=== PATIENT | female | born 1970 | race Caucasian/White ===

== ENCOUNTER 2020-04-07 15:54 | Outpatient (REF) | payer OTHER, SELFPAY ==
--- NOTE | 2020-04-07 15:58 | MM_ITS ---
EXAMINATION: MM SCREENING DIGITAL MAMMOGRAPHY, BILATERAL CLINICAL INFORMATION: Screening. Asymptomatic. The lifetime risk of breast cancer based on the Tyrer-Cuzick Model is 10.4%. COMPARISON: Mammography: November 12, 2016 TECHNIQUE: Digital mammography is performed in craniocaudal and mediolateral oblique views along with computer-aided detection (CAD). FINDINGS: The breasts are heterogeneously dense, which may obscure small masses (ACR BI-RADS breast composition Category c). There are no significant masses, abnormal calcifications, or other abnormalities. MM/MM screening mammo BI IMPRESSION: There are no significant changes from prior study. ASSESSMENT: BI-RADS 1: Negative RECOMMENDATION: Routine annual mammography screening. This patient's information was entered into a reminder system with a target due date for their next mammogram.
== END 2020-04-07 15:55 | disposition home or self-care (01) ==
LOC: HO.MAMMO 15:54
PROVIDERS: PCP Internal Medicine; Visit Provider Internal Medicine
DX: Z12.31 Encounter for screening mammogram for malignant neoplasm of breast (principal)
CPT/HCPCS: 77067

== ENCOUNTER 2021-05-07 07:51 | Outpatient (REF) | payer OTHER, SELFPAY ==
--- NOTE | ~2021-05-07 | MM_ITS ---
EXAMINATION: MM SCREENING DIGITAL BREAST TOMOSYNTHESIS, BILATERAL CLINICAL INFORMATION: Screening. Asymptomatic. The lifetime risk of breast cancer based on the Tyrer-Cuzick Model is 10.9%. COMPARISON: Mammography: April 07, 2020 and November 12, 2016 TECHNIQUE: Digital breast tomosynthesis is performed in both the craniocaudal and mediolateral oblique views along with computer-aided detection (CAD). Synthesized 2D images are generated from the tomosynthesis. FINDINGS: There are scattered areas of fibroglandular density (ACR BI-RADS breast composition Category b). There are no significant masses, abnormal calcifications, or other abnormalities. MM/MM tomosynthesis screening BI IMPRESSION: There are no significant changes from prior study. ASSESSMENT: BI-RADS 1: Negative RECOMMENDATION: Routine annual mammography screening. This patient's information was entered into a reminder system with a target due date for their next mammogram.
== END 2021-05-07 07:52 | disposition home or self-care (01) ==
LOC: HO.MAMMO 07:51
PROVIDERS: PCP Internal Medicine; Visit Provider Internal Medicine
DX: Z12.31 Encounter for screening mammogram for malignant neoplasm of breast (principal)
CPT/HCPCS: 77063; 77067

== ENCOUNTER 2021-07-15 08:42 | Outpatient (REF) | payer OTHER, SELFPAY ==
[2021-07-15 12:07] LABS: Alanine Aminotransferase 12 U/L (0-31); Anion Gap 12 (12-20); Aspartate Amino Transferase 14 U/L (5-31); Blood Urea Nitrogen 14 mg/dL (9-16); Calcium 9.8 mg/dL (8.4-10.2); Carbon Dioxide 25 mmol/L (22-29); Chloride 105 mmol/L (96-108); Cholesterol 193 mg/dL; Estimated Glomerular Filt Rate > 60; Glucose Fasting 87 mg/dL (60-99); HDL Cholesterol 54 mg/dL; LDL Cholesterol Calculated 109 mg/dl; Potassium 4.3 mmol/L (3.3-5.1); Sodium 138 mmol/L (135-145); Triglycerides 150 mg/dL
[2021-07-15 12:17] LABS: Vitamin D 25-OH Total 42.9 ng/mL (>30)
== END 2021-07-15 08:43 | disposition home or self-care (01) ==
LOC: HO.HMGCLDS 08:42
PROVIDERS: Visit Provider Internal Medicine
DX: Z00.00 Encounter for general adult medical examination without abnormal findings (principal)
CPT/HCPCS: 36415; 80048; 80061; 82306; 84450; 84460

== ENCOUNTER 2022-04-20 14:47 | Outpatient (REF) | payer OTHER, SELFPAY ==
[2022-04-20 15:36] LABS: Influenza A PCR NEGATIVE (Negative); Influenza B PCR NEGATIVE (Negative); Resp Syncy Virus RNA Qual PCR NEGATIVE (Negative); SARS COV2 PCR INHOUSE NEGATIVE (Negative)
== END 2022-04-20 14:48 | disposition home or self-care (01) ==
LOC: HO.LNP 14:47
PROVIDERS: Visit Provider Physician Assistant
DX: Z20.822 Contact with and (suspected) exposure to COVID-19 (principal)
CPT/HCPCS: 0241U

== ENCOUNTER 2022-05-10 07:59 | Outpatient (REF) | payer OTHER, SELFPAY ==
--- NOTE | ~2022-05-10 | MM_ITS ---
EXAMINATION: MM SCREENING DIGITAL BREAST TOMOSYNTHESIS, BILATERAL CLINICAL INFORMATION: Screening. Asymptomatic. The lifetime risk of breast cancer based on the Tyrer-Cuzick Model is 10.0%. COMPARISON: Mammography: May 07, 2021 and studies dating back to November 12, 2016 TECHNIQUE: Digital breast tomosynthesis is performed in both the craniocaudal and mediolateral oblique views along with computer-aided detection (CAD). Synthesized 2D images are generated from the tomosynthesis. FINDINGS: There are scattered areas of fibroglandular density (ACR BI-RADS breast composition Category b). There are no significant masses, abnormal calcifications, or other abnormalities. MM/MM tomosynthesis screening BI IMPRESSION: No significant changes from prior exam. ASSESSMENT: BI-RADS 1: Negative RECOMMENDATION: Routine annual mammography screening. This patient's information was entered into a reminder system with a target due date for their next mammogram.
== END 2022-05-10 08:00 | disposition home or self-care (01) ==
LOC: HO.MAMMO 07:59
PROVIDERS: Visit Provider Internal Medicine
DX: Z12.31 Encounter for screening mammogram for malignant neoplasm of breast (principal)
CPT/HCPCS: 77063; 77067

== ENCOUNTER 2022-07-21 08:36 | Outpatient (REF) | payer OTHER, SELFPAY ==
[2022-07-21 12:56] LABS: Alanine Aminotransferase 14 U/L (0-31); Anion Gap 13 (12-20); Aspartate Amino Transferase 16 U/L (5-31); Blood Urea Nitrogen 20 mg/dL (9-16); Calcium 9.7 mg/dL (8.4-10.2); Carbon Dioxide 27 mmol/L (22-29); Chloride 105 mmol/L (96-108); Cholesterol 214 mg/dL; Creatinine Clr Calc Pharmacy 75.2; Estimated Glomerular Filt Rate > 60; Glucose Fasting 79 mg/dL (60-99); HDL Cholesterol 50 mg/dL; LDL Cholesterol Calculated 131 mg/dl; Potassium 4.6 mmol/L (3.3-5.1); Sodium 140 mmol/L (135-145); Triglycerides 167 mg/dL
[2022-07-21 13:21] LABS: Vitamin D 25-OH Total 51.1 ng/mL (>30)
== END 2022-07-21 08:37 | disposition home or self-care (01) ==
LOC: HO.HMGCLDS 08:36
PROVIDERS: PCP Internal Medicine; Visit Provider Internal Medicine
DX: Z00.00 Encounter for general adult medical examination without abnormal findings (principal); E78.2 Mixed hyperlipidemia
CPT/HCPCS: 36415; 80048; 80061; 82306; 84450; 84460

== ENCOUNTER 2023-02-23 13:50 | Outpatient (REF) | payer OTHER, SELFPAY ==
[2023-02-23 16:47] LABS: Alanine Aminotransferase 11 U/L (0-31); Aspartate Amino Transferase 16 U/L (5-31)
== END 2023-02-23 13:51 | disposition home or self-care (01) ==
LOC: HO.HMGCLDS 13:50
PROVIDERS: PCP Internal Medicine; Visit Provider Nurse Practitioner
DX: B35.1 Tinea unguium (principal); B35.3 Tinea pedis; L71.8 Other rosacea
CPT/HCPCS: 36415; 84450; 84460

== ENCOUNTER 2023-05-16 08:19 | Outpatient (REF) | payer OTHER, SELFPAY | END 2023-05-16 08:20 | disposition home or self-care (01) | LOC: HO.MAMMO 08:19 | PROVIDERS: PCP Internal Medicine; Visit Provider Internal Medicine | DX: Z12.31 Encounter for screening mammogram for malignant neoplasm of breast (principal) | CPT/HCPCS: 77063; 77067 ==

== ENCOUNTER → 2023-05-16 08:30 | Outpatient (BNV) | payer OTHER, SELFPAY | PROVIDERS: PCP Internal Medicine; Visit Provider Radiology Diagnostic Radiology | DX: Z12.31 Encounter for screening mammogram for malignant neoplasm of breast (principal) | CPT/HCPCS: 77063; 77067 ==

== ENCOUNTER 2023-07-29 07:54 | Outpatient (AMB) | payer OTHER, SELFPAY ==
--- NOTE | 2023-07-29 07:59 | A.OFFPC_ITS ---
Vital Signs 07/29/23 08:10 Height 5 ft 5.5 in Weight 150 lb BMI 24.6 BP 120/74 Blood Pressure Location Rt brachial Position Sitting Pulse 72 Pulse Source Pulse Oximeter Pulse Oximetry (%) 98 Oxygen Delivery Method Room Air Intake Visit Reasons: PE Intake Note: Pt is here today for her PE: Last mammogram 05/16/23, pap smear 2019 Allergies pea protein Adverse Reaction (Uncoded 07/29/23 08:17) hives Medication List - Last Reconciled 07/29/23 by Leona Craig MD fluticasone propionate 50 mcg/actuation 1 spray intranasal DAILY metronidazole 1% 1 appl topical BID norethindrone ac-eth estradiol 1-20 mg-mcg 1 tab PO DAILY Tobacco use date assessed: 07/29/23 Dental Screening Dental Screen Date: 07/29/23 Did you have a dental visit in the last 12 months?: Yes Did you have a dental problem in the last 6 months where you did not have access to dental care?: No Was dental information given to patient?: Patient has dentist HPI PE HPI Details 53-year-old lady with seasonal allergic rhinitis, hypertriglyceridemia, and history of migraine, here today for her physical exam. She is currently using Flonase nasal spray as needed for her allergies which has been helping and states that migraine headache episodes has been occur infrequently. She is up-to-date with her screening mammogram, last done 05/16/23 will negative findings and is up-to-date with her cervical cancer screening with last pap smear done in 2019 with negative findings. She is still currently on control pills, does not want to stop as she is still currently sexually active . Denies any vasomotor symptoms, no mood swings. She has been feeling well, still actively exercises and has been following a healthy diet. She has not yet had colon cancer screening, does not want to do screening colonoscopy but would like to do Cologuard testing instead. REPLACED BY [facility] Medical History (Updated 07/29/23 @ 09:45 by Leona Cragi MD) Hypertriglyceridemia Seasonal allergic rhinitis History of depression Migraine Surgical History Hx of LASIK Family History Father HTN (hypertension) Mother HTN (hypertension) Brother Bipolar disorder Mental health disorder Son No problems noted. Son No problems noted. Daughter No problems noted. Paternal Uncle No problems noted. Maternal Uncle Mental health disorder Social History Housing: House Alcohol intake: current Patient Tobacco Use Status: Never used Tobacco e-Cigarette/Vaping Use: Never Used service: No Current occupational status: employed Cognitive needs: No Hearing needs: No Vision needs: No Questionnaire PHQ-9 Over the last 2 weeks, how often have you been bothered by any of the following problems? 1. Little interest or pleasure in doing things: not at all 2. Feeling down, depressed, or hopeless: not at all 3. Trouble falling or staying asleep, or sleeping too much: not at all 4. Feeling tired or having little energy: not at all 5. Poor appetite or overeating: not at all 6. Feeling bad about yourself - or that you are a failure or have let yourself or your family down: not at all 7. Trouble concentrating on things, such as reading the newspaper or watching television: not at all 8. Moving or speaking so slowly that other people could have noticed. Or the opposite - being so fidgety or restless that you have been moving around a lot more than usual: not at all 9. Thoughts that you would be better off or of hurting yourself in some way: not at all Total score: 0 Depression Screening Interpretation: Negative Depression Screening Done: Yes 90548 - PHQ-9 Billing: Yes Source: Developed by Drs. Vern Christianson, Selma Tatum, Luis Kern and colleagues, with an educational liban from [employer]. Thrive Questionnaire Date Thrive assessed: 07/29/23 I am a: Patient What is your living situation today?: I have a steady place to live Within the past 12 months, did the food you bought not last and you didn't have the money to get more?: Never true Within the past 12 months, did you worry whether your food would run out before you got money to buy more?: Never true Do you have trouble paying for medicines?: No Do you have trouble getting transportation to medical appointments?: No Do you have trouble paying your heating and electricity bill?: No Do you have trouble taking care of your child, family member or friend?: No Do you have trouble with day-to-day activities such as bathing, preparing meals, shopping, managing finances, etc.?: No Are you currently unemployed and looking for a job?: No Are you interested in more education?: No THRIVE Score: 0 AUDIT C Alcohol Use Questionnaire (AUDIT-C) 1. How often do you have a drink containing alcohol?: Monthly or less 2. How many drinks containing alcohol do you have on a typical day when you are drinking?: 1 or 2 3. How often do you have six or more drinks on one occasion?: Never Total Score: 1 MAHAD-7 AMB Questionnaire MAHAD-7 Date MAHAD - 7 assessed: 07/29/23 Feeling nervous, anxious, or on edge: 0 = Not at all Not being able to stop or control worryin = Not at all Worrying too much about different things: 0 = Not at all Trouble relaxin = Not at all Being so restless that it is hard to sit still: 0 = Not at all Becoming easily annoyed or irritable: 0 = Not at all Feeling afraid as if something awful might happen: 0 = Not at all Total MAHAD-7 score (0-4 normal; 5-9 mild; 10-14 moderate; 15-21 severe): 0 Source: Developed by Drs. Vern Christianson, Selma Tatum, Luis Kern and colleagues, with an educational liban from [employer]. MAHAD-7 Assessment Billing MAHAD-7 Assessment Tool: MAHAD-7 Assessment 98620 Review of Systems Const Denies body aches, Denies fatigue, Denies fever(s), Denies headache(s) and Denies weakness Eyes Denies change in vision ENT Denies dizziness, Denies headache(s), Denies nasal congestion, Denies nasal discharge and Denies sore throat Card Denies chest pain, Denies lightheadedness, Denies palpitations and Denies dyspnea Resp Denies chest congestion, Denies cough, Denies dyspnea and Denies wheezing GI Denies abdominal pain, Denies change in bowel habits and Denies heartburn Denies hematuria, Denies change in libido, Denies urinary frequency, Denies nipple discharge, Denies dysuria, Denies urinary incontinence and Denies urinary urgency Musc Reports no additional complaints Skin/Breast Denies breast skin changes, Denies breast pain, Denies breast mass, Denies pruritus, Denies lesions, Denies nipple discharge and Denies rash Neuro Denies dizziness, Denies headache(s), Denies memory loss and Denies weakness Psych Denies abnormal sleep pattern, Denies anxiety, Denies change in libido, Denies depression, Denies difficulty concentrating, Denies memory loss and Denies mood swings Endo Denies change in libido, Denies fatigue, Denies polydipsia, Denies polyuria and Denies palpitations Usman/Lymph Denies easy bruising Aller/Immun Reports seasonal rhinorrhea and Denies wheezing Physical exam (Primary Care) Vital Signs: Last Vital Signs Pulse 72 07/29/23 08:10 BP 120/74 07/29/23 08:10 Pulse Ox 98 07/29/23 08:10 Oxygen Delivery Method Room Air 07/29/23 08:10 BMI result Body Mass Index 24.6 Tobacco/Smoking Status: Tobacco use Status Tobacco use date assessed 07/29/23 07/29/23 08:03 Patient Tobacco Use Status Never used Tobacco 07/29/23 08:01 e-Cigarette/Vaping Use Never Used 07/29/23 08:01 PHQ-9: PHQ-9 Score PHQ-9: Total score 0 07/29/23 08:51 Depression Screening Interpretation: Negative Thrive Assessment: Date of Thrive Assessment Date Thrive assessed 07/29/23 07/29/23 08:15 Const General: comfortable and no acute distress Nutritional Appearance: average body habitus Orientation/consciousness: patient oriented x3 Limitations: no limitations [facility] Head: Yes normocephalic Ears: hearing grossly normal bilaterally, external ears normal and TM's normal bilaterally General nose exam: Normal external nose present and No nasal discharge present Face and sinus: Yes face symmetric Mouth: Normal oral and palatal mucosa present Eyes General: appearance normal, both eyes and all related structures Neck Neck: Yes full ROM, Yes no lymphadenopathy and Yes supple Thyroid: Thyroid normal Chest Breast/axilla inspection: normal inspection of the breasts Breast/axilla palpation: normal palpation of the breasts Resp Effort & Inspection: normal respiratory effort and able to speak in complete sentences Auscultation: clear to auscultation bilaterally Cardio Palpation: normal PMI Rate: regular rate Rhythm: regular rhythm Heart sounds: S1 normal heart sound present and S2 normal heart sound present GI Inspection: Yes normal to inspection Palpation (GI): Soft to palpation, nontender, no guarding and no masses Auscultation: normal bowel sounds General: Yes bladder normal to inspection and Yes no CVA tenderness External Female Exam: normal external appearance and normal appearance of the urethra Speculum Exam - Vagina: normal appearance of the vagina, normal palpation and abnormal vaginal discharge yellow (Mucoid vaginal discharge) Speculum Exam - Cervix: normal appearance of the cervix, normal palpation, Cervical os open and nontender Bimanual exam- vagina & uterus: normal palpation, normal palpation, No Cervical tenderness present and non-tender OB/external & speculum: Cervical os open Back/Spine/Pelvis Back: no CVA tenderness and No back tenderness Skin General skin exam: no rashes or lesions noted Neuro General: patient oriented x3, gait normal, tone normal, moves all extremities, Normal light touch and pain sensation, no focal motor deficits and CN's II-XI intact bilaterally Cranial nerves: Yes CN's II-XII intact bilaterally Extrem General: Yes normal to inspection, Yes no joint enlargement, Yes no pedal edema and Yes normal gait Psych Appearance: grossly normal Mental Status: mental status grossly normal Speech and movement: Normal speech and movement present Affect: normal affect Attitude: cooperative Thought process: Normal thought process present Assessment and Plan Assessment & Plan (1) Annual visit for general adult medical examination with abnormal findings: Code(s): Z00.01 - Encounter for general adult medical examination with abnormal findings Plan: Will check appropriate labs. Continue regular dental visit every 6 months and regular eye exams, at least every 2 years. Take adequate calcium in diet and vitamin-D 3 at 2000 IU per cap once a day, continue ready weight-bearing exercises to help maintain good muscle tone and weight control. Instructed to do self-breast exam, and continue with yearly mammogram. Cervical cancer screening and pelvic exam done on this visit together with STI checks. Has had COVID vaccination but does not want to get the booster, reminded to get her yearly flu vaccine and recommended to get an updated Tdap. Cologuard testing ordered for colon cancer screen (2) Cervical cancer screening: Code(s): Z12.4 - Encounter for screening for malignant neoplasm of cervix Plan: Pap smear done (3) Screening examination for STI: Code(s): Z11.3 - Encounter for screening for infections with a predominantly sexual mode of transmission Plan: Screening for gonorrhea and chlamydia as well as bacterial vaginosis panel done (4) Vaginal discharge: Code(s): N89.8 - Other specified noninflammatory disorders of vagina Plan: Screening for gonorrhea and chlamydia as well as bacterial vaginosis panel done (5) Hypertriglyceridemia: Code(s): E78.1 - Pure hyperglyceridemia Plan: Fasting lipid panel ordered, continue with regular exercise and healthy eating habits (6) Migraine: Code(s): G43.909 - Migraine, unspecified, not intractable, without status migrainosus Plan: Occurring infrequently (7) Seasonal allergic rhinitis: Code(s): J30.2 - Other seasonal allergic rhinitis Qualifiers: Allergic rhinitis trigger: unspecified Qualified Code(s): J30.2 - Other seasonal allergic rhinitis Plan: Refill prescription sent for Flonase to express Orders: Orders CT NG by PCR Today N89.8 - Other specified noninflammatory disorders of vagina, Z11.3 - Encounter for screening for infections with a predominantly sexual mode of transmission Lipid Panel Today E78.1 - Pure hyperglyceridemia, G43.909 - Migraine, unspecified, not intractable, without status migrainosus, J30.2 - Other seasonal allergic rhinitis, Z00.01 - Encounter for general adult medical examination with abnormal findings Alanine Aminotransferase Today E78.1 - Pure hyperglyceridemia, G43.909 - Migraine, unspecified, not intractable, without status migrainosus, J30.2 - Other seasonal allergic rhinitis, Z00.01 - Encounter for general adult medical examination with abnormal findings Aspartate Amino Transferase Today E78.1 - Pure hyperglyceridemia, G43.909 - Migraine, unspecified, not intractable, without status migrainosus, J30.2 - Other seasonal allergic rhinitis, Z00.01 - Encounter for general adult medical examination with abnormal findings Vitamin D 25-OH Total Today E78.1 - Pure hyperglyceridemia, G43.909 - Migraine, unspecified, not intractable, without status migrainosus, J30.2 - Other seasonal allergic rhinitis, Z00.01 - Encounter for general adult medical examination with abnormal findings Pap Smear Today Z12.4 - Encounter for screening for malignant neoplasm of cervix Bacterial Vaginosis Panel Today N89.8 - Other specified noninflammatory disorders of vagina, Z11.3 - Encounter for screening for infections with a predominantly sexual mode of transmission Complete Blood Count Auto Diff Today E78.1 - Pure hyperglyceridemia, G43.909 - Migraine, unspecified, not intractable, without status migrainosus, J30.2 - Other seasonal allergic rhinitis, Z00.01 - Encounter for general adult medical examination with abnormal findings Basic Metabolic Panel Fasting Today E78.1 - Pure hyperglyceridemia, G43.909 - Migraine, unspecified, not intractable, without status migrainosus, J30.2 - Other seasonal allergic rhinitis, Z00.01 - Encounter for general adult medical examination with abnormal findings Referrals Cologuard Test Z12.11 - Encounter for screening for malignant neoplasm of colon, Z12.12 - Encounter for screening for malignant neoplasm of rectum Medications: Changed From fluticasone propionate 50 mcg/actuation 1 spray intranasal DAILY 15.8 mL 4RF J30.2 - Other seasonal allergic rhinitis To fluticasone propionate 50 mcg/actuation 1 spray intranasal DAILY 3 months 15.8 mL 4RF J30.2 - Other seasonal allergic rhinitis Coding Level of Care Code Est Pt Prev Care 40-64y(41249) Diagnoses Annual visit for general adult medical examination with abnormal findings Z00.01 Cervical cancer screening Z12.4 Screening examination for STI Z11.3 Vaginal discharge N89.8 Hypertriglyceridemia E78.1 Migraine G43.909 Seasonal allergic rhinitis, unspecified trigger J30.2 Allergic rhinitis trigger: unspecified Additional Codes MAHAD-7 Assessment Billing - MAHAD-7 Assessment Tool: MAHAD-7 Assessment [id number] ([id number])
[2023-07-29 08:10] VITALS: BP 120/74; PULSE 72; O2SAT 98; BMI 24.6
== END 2023-07-29 08:50 | disposition home or self-care (01) ==
PROVIDERS: Visit Provider Internal Medicine
DX: Z00.00 Encounter for general adult medical examination without abnormal findings (principal); E78.1 Pure hyperglyceridemia; Z11.3 Encounter for screening for infections with a predominantly sexual mode of transmission; N89.8 Other specified noninflammatory disorders of vagina; G43.909 Migraine, unspecified, not intractable, without status migrainosus; J30.2 Other seasonal allergic rhinitis
CPT/HCPCS: 99396

== ENCOUNTER 2023-07-29 08:29 | Outpatient (REF) | payer OTHER, SELFPAY ==
[2023-07-30 11:15] LABS: BV Int Neg Control Negative (Negative); BV Int Pos Control Positive (Positive)
[2023-08-06 18:47] LABS: HPV 16 RNA NOT DETECTED (NOT DETECTED); HPV mRNA E6/E7 rflx Detected (Not Detected)
== END 2023-07-29 08:30 | disposition home or self-care (01) ==
LOC: HO.LAB 08:29
PROVIDERS: Visit Provider Internal Medicine
DX: Z12.4 Encounter for screening for malignant neoplasm of cervix (principal); Z11.51 Encounter for screening for human papillomavirus (HPV); N89.8 Other specified noninflammatory disorders of vagina
CPT/HCPCS: 87480; 87510; 87624; 87625; 87660; 88142

== ENCOUNTER 2023-07-29 08:51 | Outpatient (REF) | payer OTHER, SELFPAY ==
[2023-07-29 10:26] LABS: MANUAL DIFF FLAG NO
[2023-07-29 10:53] LABS: Basophils Absolute Auto 0.1 X10*3/uL (0.0-0.2); Basophils Percent Auto 0.9 % (0-2); Eosinophils Absolute Auto 0.1 X10*3/uL (0.0-0.4); Hematocrit 42.3 % (37.0-47.0); Hemoglobin 13.4 g/dl (12.0-16.0); Imm Gran Abs Auto 0.02 X10*3/uL (0.00-0.03); Imm Gran Pct Auto 0.3 % (0.0-0.4); Lymphocytes Absolute Auto 2.5 X10*3/uL (1.2-4.9); Lymphocytes Percent Auto 32.3 % (20-40); Mean Corpuscular HGB Conc 31.7 g/dl (31.0-35.0); Mean Corpuscular Hemoglobin 29.7 pg (27.0-33.0); Mean Corpuscular Volume 93.8 fL (80.0-98.0); Mean Platelet Volume 9.6 fL (9.4-12.3); Monocytes Absolute Auto 0.4 X10*3/uL (0.1-1.2); Monocytes Percent Auto 4.9 % (2-11); Neutrophils Absolute Auto 4.7 x10*3/uL (2.0-8.3); Neutrophils Percent Auto 60.6 % (45-73); Platelet Count 312 X10*3/uL (160-400); Red Blood Count 4.51 X10*6/uL (4.20-5.50); Red Cell Distribution Width 11.9 % (11.0-16.0); White Blood Count 7.8 X10*3/uL (4.8-10.8)
[2023-07-29 11:08] LABS: Alanine Aminotransferase 18 U/L (0-31); Anion Gap 11 (12-20); Aspartate Amino Transferase 19 U/L (5-31); Blood Urea Nitrogen 17 mg/dL (9-16); Calcium 9.3 mg/dL (8.4-10.2); Carbon Dioxide 26 mmol/L (22-29); Chloride 105 mmol/L (96-108); Cholesterol 174 mg/dL (<200); Estimated Glomerular Filt Rate > 60; Glucose Fasting 86 mg/dL (60-99); HDL Cholesterol 49 mg/dL (>40); LDL Cholesterol Calculated 104 mg/dL (<100); Potassium 3.9 mmol/L (3.3-5.1); Sodium 138 mmol/L (135-145); Triglycerides 106 mg/dL (<150)
[2023-07-29 11:27] LABS: Vitamin D 25-OH Total 76.2 ng/mL (>30)
[2023-07-29 11:57] LABS: CT PCR NOT DETECTED (Not Detect.); NG PCR NOT DETECTED (Not Detect.)
== END 2023-07-29 08:52 | disposition home or self-care (01) ==
LOC: HO.HMGCLDS 08:51
PROVIDERS: PCP Internal Medicine; Visit Provider Internal Medicine
DX: Z00.01 Encounter for general adult medical examination with abnormal findings (principal); E78.1 Pure hyperglyceridemia; G43.909 Migraine, unspecified, not intractable, without status migrainosus; J30.2 Other seasonal allergic rhinitis; N89.8 Other specified noninflammatory disorders of vagina; Z20.2 Contact with and (suspected) exposure to infections with a predominantly sexual mode of transmission
CPT/HCPCS: 0353U; 80048; 80061; 82306; 84450; 84460; 85025

== ENCOUNTER 2024-05-21 08:08 | Outpatient (REF) | payer OTHER, SELFPAY | END 2024-05-21 08:09 | disposition home or self-care (01) | LOC: HO.MAMMO 08:08 | PROVIDERS: PCP Internal Medicine; Visit Provider Internal Medicine | DX: Z12.31 Encounter for screening mammogram for malignant neoplasm of breast (principal) | CPT/HCPCS: 77063; 77067 ==

== ENCOUNTER → 2024-05-21 08:15 | Outpatient (BNV) | payer OTHER, SELFPAY | PROVIDERS: PCP Internal Medicine; Visit Provider Internal Medicine | DX: Z12.31 Encounter for screening mammogram for malignant neoplasm of breast (principal) | CPT/HCPCS: 77063; 77067 ==

== ENCOUNTER 2024-08-08 08:51 | Outpatient (AMB) | payer OTHER, SELFPAY ==
--- NOTE | 2024-08-08 09:11 | MHC.PC.OV ---
Vital Signs 08/08/24 09:12 Height 5 ft 5.5 in Weight 163 lb BMI 26.7 BP 118/80 Blood Pressure Location Rt brachial Position Sitting Respiration 15 Pulse 73 Pulse Source Pulse Oximeter Temp 98.1 F Temp Source Oral Pulse Oximetry (%) 98 Oxygen Delivery Method Room Air Intake Visit Reasons: pe Intake Note: Pt is here today for her PE: Last mammogram 05/21/24, papsmear 08/02/23, cologuard 08/16/23 Allergies pea protein Adverse Reaction (Uncoded 08/08/24 09:40) hives Medication List - Last Reconciled 08/08/24 by Leona Craig MD fluticasone propionate 50 mcg/actuation 1 spray intranasal DAILY 3 months metronidazole 1% 1 appl topical BID norethindrone ac-eth estradiol 1-20 mg-mcg 1 tab PO DAILY Tobacco use date assessed: 08/08/24 Dental Screening Dental Screen Date: 08/08/24 Did you have a dental visit in the last 12 months?: Yes Did you have a dental problem in the last 6 months where you did not have access to dental care?: Yes Was dental information given to patient?: Patient has dentist HPI pe HPI Details 54-year-old lady here today for physical exam. She is up-to-date with her breast cancer screening, with last mammogram 05/21/24 showing negative findings, up-to-date with her cervical cancer screening, with last papsmear done 08/02/23 showed normal results.. She is up-to-date with her colon cancer screening, with cologuard done 08/16/23 with negative results [facility] Medical History (Updated 08/08/24 @ 10:06 by Leona Craig MD) History of abnormal cervical Pap smear Hypertriglyceridemia Seasonal allergic rhinitis History of depression Migraine Surgical History Hx of LASIK Family History Father HTN (hypertension) Mother HTN (hypertension) Brother Bipolar disorder Mental health disorder Son No problems noted. Son No problems noted. Daughter No problems noted. Paternal Uncle No problems noted. Maternal Uncle Mental health disorder Social History Housing: House Alcohol intake: current Patient Tobacco Use Status: Never used Tobacco e-Cigarette/Vaping Use: Never Used service: No Current occupational status: employed Cognitive needs: No Hearing needs: No Vision needs: No Questionnaire PHQ-9 Over the last 2 weeks, how often have you been bothered by any of the following problems? 1. Little interest or pleasure in doing things: not at all 2. Feeling down, depressed, or hopeless: not at all 3. Trouble falling or staying asleep, or sleeping too much: several days 4. Feeling tired or having little energy: several days 5. Poor appetite or overeating: several days 6. Feeling bad about yourself - or that you are a failure or have let yourself or your family down: not at all 7. Trouble concentrating on things, such as reading the newspaper or watching television: not at all 8. Moving or speaking so slowly that other people could have noticed. Or the opposite - being so fidgety or restless that you have been moving around a lot more than usual: not at all 9. Thoughts that you would be better off or of hurting yourself in some way: not at all Total score: 3 Depression Screening Interpretation: Negative Depression Screening Done: Yes Source: Developed by Drs. Vern Christianson, Selma Tatum, Luis Kern and colleagues, with an educational liban from [employer]. Thrive Questionnaire Date Thrive assessed: 08/01/24 I am a: Patient What is your living situation today?: I have a steady place to live Within the past 12 months, did the food you bought not last and you didn't have the money to get more?: Never true Within the past 12 months, did you worry whether your food would run out before you got money to buy more?: Never true Do you have trouble paying for medicines?: No Do you have trouble getting transportation to medical appointments?: No Do you have trouble paying your heating and electricity bill?: No Do you have trouble taking care of your child, family member or friend?: No Do you have trouble with day-to-day activities such as bathing, preparing meals, shopping, managing finances, etc.?: No Are you currently unemployed and looking for a job?: No Are you interested in more education?: No Please select the resources that you would like help with: None Currently or been in a relationship where the following occur: No concerns reported THRIVE Score: 0 AUDIT C Alcohol Use Questionnaire (AUDIT-C) 1. How often do you have a drink containing alcohol?: 2-4 times a month 2. How many drinks containing alcohol do you have on a typical day when you are drinking?: 1 or 2 3. How often do you have six or more drinks on one occasion?: Never Total Score: 2 MAHAD-7 AMB Questionnaire MAHAD-7 Date MAHAD - 7 assessed: 07/29/23 Feeling nervous, anxious, or on edge: 1 = Several days Not being able to stop or control worryin = Not at all Worrying too much about different things: 0 = Not at all Trouble relaxin = Not at all Being so restless that it is hard to sit still: 0 = Not at all Becoming easily annoyed or irritable: 1 = Several days Feeling afraid as if something awful might happen: 0 = Not at all Total MAHAD-7 score (0-4 normal; 5-9 mild; 10-14 moderate; 15-21 severe): 2 Source: Developed by Drs. Vern Christianson, Selma Tatum, Luis Kern and colleagues, with an educational liban from [employer]. MAHAD-7 Assessment Billing MAHAD-7 Assessment Tool: MAHAD-7 Assessment 32460 Review of Systems Const Denies body aches, Denies fatigue, Denies fever(s), Denies headache(s) and Denies weakness Eyes Denies change in vision ENT Denies dizziness, Denies headache(s), Denies nasal congestion, Denies nasal discharge and Denies sore throat Card Denies chest pain, Denies lightheadedness, Denies palpitations and Denies dyspnea Resp Denies chest congestion, Denies cough, Denies dyspnea and Denies wheezing GI Denies abdominal pain, Denies change in bowel habits and Denies heartburn Denies hematuria, Denies change in libido, Denies urinary frequency, Denies nipple discharge, Denies dysuria, Denies urinary incontinence and Denies urinary urgency Musc Reports no additional complaints Skin/Breast Denies breast skin changes, Denies breast pain, Denies breast mass, Denies pruritus, Denies lesions, Denies nipple discharge and Denies rash Neuro Denies dizziness, Denies headache(s), Denies memory loss and Denies weakness Psych Denies abnormal sleep pattern, Denies anxiety, Denies change in libido, Denies depression, Denies difficulty concentrating, Denies memory loss and Denies mood swings Endo Denies change in libido, Denies fatigue, Denies polydipsia, Denies polyuria and Denies palpitations Usman/Lymph Denies easy bruising Aller/Immun Reports seasonal rhinorrhea and Denies wheezing Physical exam (Primary Care) Vital Signs: Last Vital Signs Temp 98.1 F 08/08/24 09:12 Pulse 73 08/08/24 09:12 Resp 15 08/08/24 09:12 BP 118/80 08/08/24 09:12 Pulse Ox 98 08/08/24 09:12 Oxygen Delivery Method Room Air 08/08/24 09:12 BMI result Body Mass Index 26.7 Tobacco/Smoking Status: Tobacco use Status Tobacco use date assessed 08/08/24 08/08/24 09:14 Patient Tobacco Use Status Never used Tobacco 08/08/24 09:14 e-Cigarette/Vaping Use Never Used 08/08/24 09:14 PHQ-9: PHQ-9 Score PHQ-9: Total score 5 08/08/24 09:56 Depression Screening Interpretation: Negative Thrive Assessment: Date of Thrive Assessment Date Thrive assessed 08/01/24 08/08/24 09:14 Currently or been in a relationship where the following occur: No concerns reported Advance Care Planning discussion: Completed/Scanned Date of discussion: 08/08/24 Who was present: patient Forms completed: Health Care Proxy Time spent: 16-45 minutes Actual minutes spent: 3 Const General: no acute distress Nutritional Appearance: average body habitus Orientation/consciousness: patient oriented x3 HENMT Head: Yes normocephalic Ears: hearing grossly normal bilaterally, external ears normal and TM's normal bilaterally General nose exam: Normal external nose present and No nasal discharge present Face and sinus: Yes face symmetric Mouth: Normal oral and palatal mucosa present Eyes General: appearance normal, both eyes and all related structures Neck Neck: Yes full ROM, Yes no lymphadenopathy and Yes supple Thyroid: Thyroid normal Chest Breast/axilla inspection: normal inspection of the breasts Breast/axilla palpation: normal palpation of the breasts Resp Effort & Inspection: normal respiratory effort and able to speak in complete sentences Auscultation: clear to auscultation bilaterally Cardio Palpation: normal PMI Rate: regular rate Rhythm: regular rhythm Heart sounds: S1 normal heart sound present and S2 normal heart sound present GI Inspection: Yes normal to inspection Palpation (GI): Soft to palpation, nontender, no guarding and no masses Auscultation: normal bowel sounds Back/Spine/Pelvis Back: No back tenderness Skin General skin exam: no rashes or lesions noted Neuro General: patient oriented x3, gait normal, tone normal, moves all extremities, Normal light touch and pain sensation, no focal motor deficits and CN's II-XI intact bilaterally Cranial nerves: Yes CN's II-XII intact bilaterally Extrem General: Yes normal to inspection, Yes no joint enlargement, Yes no pedal edema and Yes normal gait Psych Appearance: grossly normal Mental Status: mental status grossly normal Speech and movement: Normal speech and movement present Affect: normal affect Attitude: cooperative Thought process: Normal thought process present Coding Level of Care Code Est Pt Prev Care 40-64y(54952) Diagnoses Annual visit for general adult medical examination with abnormal findings Z00.01 Seasonal allergic rhinitis, unspecified trigger J30.2 Allergic rhinitis trigger: unspecified Encounter for counseling regarding advance directives Z71.89 History of abnormal cervical Pap smear Z87.42 Additional Codes MAHAD-7 Assessment Billing - MAHAD-7 Assessment Tool: MAHAD-7 Assessment 34534 ([id number]) Vital Signs *Quality* - Advance Care Planning discussion: Completed/Scanned ([id number]) Vital Signs *Quality* - Time spent: 16-45 minutes ([id number]) Assessment & Plan Assessment & Plan (1) Annual visit for general adult medical examination with abnormal findings: Code(s): Z00.01 - Encounter for general adult medical examination with abnormal findings Plan: WILL CHECK APPROPRIATE LABS. CONTINUE WITH DENTAL VISIT EVERY 6 MONTHS AND REGULAR EYE EXAMS, AT LEAST EVERY 2 YEARS. TAKE ADEQUATE CALCIUM IN DIET AND VITAMIN-D 3 AT 2000 IU PER CAP ONCE A DAY, IN ADDITION TO WEIGHT-BEARING EXERCISES TO HELP MAINTAIN GOOD MUSCLE TONE AND WEIGHT CONTROL. INSTRUCTED TO DO SELF-BREAST EXAM, AND CONTINUE TO GET YEARLY MAMMOGRAM, CURRENTLY UP-TO-DATE. [facility] BY DR. CISNEROS, WHO DID A COLPOSCOPY APRIL 2024 WITH BENIGN FINDINGS PER PATIENT. COPY OF REPORT REQUESTED. REMINDED TO GET HER ROUTINE CERVICAL CANCER SCREENING SCHEDULED WITH THEM. UP-TO-DATE WITH HER COLON CANCER SCREENING, HAD A COLOGUARD DONE IN 2023 WITH NEGATIVE FINDINGS, DUE FOR RECHECK IN 2026. REMINDED TO GET HER YEARLY FLU SHOT DOES NOT WANT TO GET COVID BOOSTERS (2) Seasonal allergic rhinitis: Code(s): J30.2 - Other seasonal allergic rhinitis Category: Medical Qualifiers: Allergic rhinitis trigger: unspecified Qualified Code(s): J30.2 - Other seasonal allergic rhinitis Plan: Takes Zyrtec as needed and fluticasone nasal spray (3) Encounter for counseling regarding advance directives: Code(s): Z71.89 - Other specified counseling Plan: Initiated the conversation about Advanced Directives. Advanced Directives help patients prepare for current and future decisions about their medical treatment and place of care. Discussed with patient that it is a process where a patients current condition and prognosis are reviewed, their wishes for information regarding their illness are elicited, and likely medical dilemmas are presented and options discussed. Healthcare proxy form completed today. The form can be amended as needed, reviewed yearly and make changes as needed (4) History of abnormal cervical Pap smear: Comment: Had ascus with positive HPV in 2023 Code(s): Z87.42 - Personal history of other diseases of the female genital tract Category: Medical Plan: Already seen by Moraima CALDERON, by Dr. Cisneroshasandra colposcopy in April 2024, with benign findings per patient, copy of report requested Orders: Orders Alanine Aminotransferase 08/08/24 J30.2 - Other seasonal allergic rhinitis, Z00.01 - Encounter for general adult medical examination with abnormal findings, Z13.220 - Encounter for screening for lipoid disorders, Z71.89 - Other specified counseling Basic Metabolic Panel Fasting 08/08/24 J30.2 - Other seasonal allergic rhinitis, Z00.01 - Encounter for general adult medical examination with abnormal findings, Z13.220 - Encounter for screening for lipoid disorders, Z71.89 - Other specified counseling Aspartate Amino Transferase 08/08/24 J30.2 - Other seasonal allergic rhinitis, Z00.01 - Encounter for general adult medical examination with abnormal findings, Z13.220 - Encounter for screening for lipoid disorders, Z71.89 - Other specified counseling Lipid Panel 08/08/24 J30.2 - Other seasonal allergic rhinitis, Z00.01 - Encounter for general adult medical examination with abnormal findings, Z13.220 - Encounter for screening for lipoid disorders, Z71.89 - Other specified counseling Vitamin D 25-OH Total 08/08/24 J30.2 - Other seasonal allergic rhinitis, Z00.01 - Encounter for general adult medical examination with abnormal findings, Z13.220 - Encounter for screening for lipoid disorders, Z71.89 - Other specified counseling
[2024-08-08 09:12] VITALS: BP 118/80; PULSE 73; RESP 15; TEMP 36.7; O2SAT 98; BMI 26.7
--- OUTSIDE RECORDS SUMMARY | 2024-08-08 09:15 | XMS_ITS | Clinical Summary ---
Author Organization [address] Address [address] [place] [phone] Phone Care Team Providers Care Plating Tank Operator Apprentice Name Role Phone Physician, Pcp Unknown Primary Care Provider Mena vailable Social History Tobacco Use Types Packs/Day Years Used Date Smoking Tobacco: Never Smokeless Tobacco: Never Tobacco Cessation:Counseling Given: Not Answered Alcohol Use Standard Drinks/Week Comments Yes 0 (1 standard drink = 0.6 oz pur e alcohol) Comments No Sex and Gender Information Value Date Recorded Sex Assigned at Not on file Legal Sex Female 11:07 PM EST Gender Identity Not on file Sexual Orientation Not on file Obstetrics History Para Term AB IAB SAB Ectopic Multiple Livin g Live Births 3 3 2 1 0 0 0 0 0 3 3 Date Outcome GA Total Labor Labor/2nd/3rd Weight Sex Type Anes PTL Huyen A1 A5 Name Clin M Living Term F Living Term M Living Last Filed Vital Signs Vital Sign Reading Time Taken Comments Blood Pressure 138/90 04/17/2024 12:56 PM EST Pulse 78 04/17/2024 12:56 PM EST Temperature - - Respiratory Rate 16 04/17/2024 12:56 PM EST Oxygen Saturation - - Inhaled Oxygen Concentration - - Weight 72.6 kg (160 lb) 04/17/2024 12:56 PM EST Height 167.6 cm (5' 6 ) 04/17/2024 12:56 PM EST Body Mass Index 25.82 04/17/2024 12:56 PM EST Plan of Treatment Health Maintenance Due Date Last Done Comments Breast Cancer Screening 1970 DTaP,Tdap,and Td Vaccines (1 - Tdap) 12/31/1990 Hepatitis B Vaccines (1 of 3 - 19+ 3-dose series) 12/31/1990 Cervical Cancer Screening: Pap Smear 12/31/1992 Pneumococcal Vaccine: 50+ Years (1 of 1 - PCV) 12/31/2021 Zoster Vaccines (1 of 2) 12/31/2021 COVID-19 Vaccine (4 - season) 2024 04/07/2022, 05/25/2021, 09/03/2020 Influenza Vaccine (#1) 2024 , 05/25/2021, 04/01/2020, Additional history exists Colorectal Cancer Screening: Colonoscopy 03/26/2024 Depression Screening 03/26/2024 HIV Screening 03/26/2024 Hepatitis C Screening 03/26/2024 Social Influencers of Health Screening 03/26/2024 HIB Vaccines Aged Out No longer eligi ble based on patient's age to complete this topic HPV Vaccines Aged Out No longer eligi ble based on patient's age to complete this topic Hepatitis A Vaccines Aged Out No long er eligible based on patient's age to complete this topic IPV Vaccines Aged Out No longer eligi ble based on patient's age to complete this topic MMR Vaccines Aged Out No longer eligi ble based on patient's age to complete this topic Meningococcal ACWY Vaccine Aged Out N o longer eligible based on patient's age to complete this topic Meningococcal B Vaccine Aged Out No l onger eligible based on patient's age to complete this topic Pneumococcal Vaccine: Pediatrics (0 to 5 Years) and At-Risk Patients (6 to 64 Years) Aged Out No longer eligible based on patient's age to complete this topic RSV Immunization Patients Under 20 months Aged Out No longer eligible based on patient's age to complete this topic Varicella Vaccines Aged Out No longer eligible based on patient's age to complete this topic Insurance [employer] Care Teams Plating Tank Operator Apprentice Relationship Specialty Start Date End Date Physician, Pcp Unknown PCP - General 04/10/24
== END 2024-08-08 10:07 | disposition home or self-care (01) ==
LOC: HO.HMCC 08:52
PROVIDERS: PCP Internal Medicine; Visit Provider Internal Medicine
DX: Z00.01 Encounter for general adult medical examination with abnormal findings (principal); J30.2 Other seasonal allergic rhinitis; Z71.89 Other specified counseling; Z87.42 Personal history of other diseases of the female genital tract; Z00.00 Encounter for general adult medical examination without abnormal findings

== ENCOUNTER 2024-08-08 08:51 | Outpatient (REF) | payer OTHER, SELFPAY ==
--- OUTSIDE RECORDS SUMMARY | 2024-08-08 11:25 | XMS_ITS | Clinical Summary ---
Author Organization [address] Address [address] [place] [phone] Phone Care Team Providers Care Ethanol Maintenance Mechanic Name Role Phone Physician, Pcp Unknown Primary [...] of 2) 12/31/2021 COVID-19 Vaccine (4 - 2023- season) 2024 04/07/2022, 05/25/2021, 09/03/2020 Colorectal Cancer Screening: Colonoscopy 03/26/2024 Depression Screening 03/26/2024 HIV Screening 03/26/2024 Hepatitis C Screening 03/26/2024 Social Influencers of Health Screening 03/26/2024 Influenza Vaccine (Season Ended) 2024 04/07/2022, 05/25/2021, 04/01/2020, Additional history exists HIB Vaccines Aged Out No longer eligi [...] complete this topic Insurance [employer] Care Teams Ethanol Maintenance Mechanic Relationship Specialty Start Date End Date Physician, Pcp Unknown PCP - General 04/10/24
[2024-08-08 14:17] LABS: Alanine Aminotransferase 10 U/L (0-31); Anion Gap 10 (12-20); Aspartate Amino Transferase 22 U/L (5-31); Blood Urea Nitrogen 13 mg/dL (9-16); Calcium 9.5 mg/dL (8.4-10.2); Carbon Dioxide 27 mmol/L (22-29); Chloride 106 mmol/L (96-108); Cholesterol 220 mg/dL (<200); Estimated Glomerular Filt Rate > 60; Glucose Fasting 86 mg/dL (60-99); HDL Cholesterol 57 mg/dL (>40); LDL Cholesterol Calculated 129 mg/dL (<100); Potassium 4.4 mmol/L (3.3-5.1); Sodium 139 mmol/L (135-145); Triglycerides 173 mg/dL (<150); Vitamin D 25-OH Total 76.4 ng/mL (>30)
== END 2024-08-08 08:52 | disposition home or self-care (01) ==
LOC: HO.HMGCLDS 08:51
PROVIDERS: PCP Internal Medicine; Visit Provider Internal Medicine
DX: Z00.01 Encounter for general adult medical examination with abnormal findings (principal); Z13.220 Encounter for screening for lipoid disorders; J30.2 Other seasonal allergic rhinitis; Z71.89 Other specified counseling; Z87.42 Personal history of other diseases of the female genital tract
CPT/HCPCS: 36415; 80048; 80061; 82306; 84450; 84460; 96127

== ENCOUNTER 2024-11-23 09:09 | Outpatient (AMB) | payer OTHER, SELFPAY ==
--- OUTSIDE RECORDS SUMMARY | 2024-11-23 09:25 | XMS_ITS | Clinical Summary ---
Author Organization [address] Address [address] [place] [phone] Phone Care Team Providers Care Haulage Engine Operator Name Role Phone Physician, Pcp Unknown Primary [...] 05/25/2021, 09/03/2020 Colorectal Cancer Screening: Colonoscopy 03/26/2024 HIV Screening 03/26/2024 Hepatitis C Screening 03/26/2024 Social Influencers of Health Screening 03/26/2024 Depression Screening 05/02/2024 Influenza Vaccine (#1) 2024 2, 05/25/2021, 04/01/2020, Additional history exists HIB Vaccines [...] patient's age to complete this topic Insurance [employer] Care Teams Haulage Engine Operator Relationship Specialty Start Date End Date Physician, Pcp Unknown PCP - General 04/10/24
[2024-11-23 09:39] VITALS: BP 116/66; PULSE 67; TEMP 36.7; O2SAT 99; BMI 25.6
--- NOTE | 2024-11-23 09:39 | MHC.OFFWIV ---
Intake Vital Signs 11/23/24 09:39 Height 5 ft 5.5 in Weight 156 lb BMI 25.6 BP 116/66 Blood Pressure Location Rt brachial Position Sitting Pulse 67 Pulse Source Pulse Oximeter Temp 98.0 F Temp Source Oral Pulse Oximetry (%) 99 Oxygen Delivery Method Room Air Intake Visit Reasons: EP digestive stomach issues Patient Tobacco Use Status: Never used Tobacco Team Member Required: No Is last menstrual period known: Yes Last menstrual period: 11/02/24 Post menopausal: No Patient : No Allergies pea protein Adverse Reaction (Uncoded 08/08/24 09:40) hives Medication List - Last Reconciled 11/23/24 by Alondra Bray MD fluticasone propionate 50 mcg/actuation 1 spray intranasal DAILY 3 months metronidazole 1% 1 appl topical BID norethindrone ac-eth estradiol 1-20 mg-mcg 1 tab PO DAILY Do you need a note to return to daycare/school/sports/work: No HPI EP digestive stomach issues HPI Details History - The patient is a 54-year-old female presenting with diarrhea and stomach distress. - The diarrhea and stomach distress began on the evening of November 12 after a dinner during a vacation in [place]. - Initial episode of diarrhea occurred on Tuesday after leaving [place]. - Patient experienced severe fatigue and was unable to eat for several days due to fear of worsening symptoms. - Hunger returned gradually, and the patient resumed eating despite diarrhea persisting. - Diarrhea is most severe in the morning, usually occurring twice, with a recent episode requiring multiple bathroom visits throughout the day. - No blood in stools; associated symptoms include cramping and soreness after bowel movements. - No fever or chills reported. - Significant weight loss reported since vacation; approximately 3 to 3.5 pounds in a week and a half. - A family member and significant other had short-term stomach issues, including diarrhea, prior to her symptoms. Social History: - Patient has recently been on vacation in [place], returning shortly after symptoms began. - Attempting to manage weight, recording changes post-vacation. Family History: - Boyfriend's mother experienced stomach issues, including diarrhea for three days in October. - Boyfriend had a stomach illness a few days before patient's vacation. Problem List - Diarrhea - Stomach Distress Patient Instructions - Provide a stool specimen to the lab when possible. - Maintain adequate hydration, considering electrolyte-rich fluids. Review of Systems - General: No fever no chills - Neurological: No headaches no dizziness - Ear nose throat: No sore throat no hearing difficulty no ear pain - Cardiovascular: No syncope, no chest pain, no palpitations - Gastrointestinal: No nausea vomiting Physical Exam General: No acute distress HEENT: No acute findings Neck: Supple Respiratory system: Able to talk in full sentences Cardiovascular: S1-S2 regular in rate and rhythm Gastrointestinal: Soft nontender bowel sounds positive Extremities: No edema FIELD NURSE CASE MANAGER: Alert awake oriented x3 Skin: Normal turgor [facility] Medical History History of abnormal cervical Pap smear Hypertriglyceridemia Seasonal allergic rhinitis History of depression Migraine Surgical History Hx of LASIK Family History Father HTN (hypertension) Mother HTN (hypertension) Brother Bipolar disorder Mental health disorder Son No problems noted. Son No problems noted. Daughter No problems noted. Paternal Uncle No problems noted. Maternal Uncle Mental health disorder Social History Housing: House Alcohol intake: current Patient Tobacco Use Status: Never used Tobacco e-Cigarette/Vaping Use: Never Used Patient : No service: No Current occupational status: employed Cognitive needs: No Hearing needs: No Vision needs: No Female Reproductive History Menstrual Date of last menstrual period: 11/02/24 Physical Exam Vital Signs: Last Vital Signs Temp 98.0 F 11/23/24 09:39 Pulse 67 11/23/24 09:39 BP 116/66 11/23/24 09:39 Pulse Ox 99 11/23/24 09:39 Oxygen Delivery Method Room Air 11/23/24 09:39 BMI result Body Mass Index 25.6 Assessment & Plan Assessment & Plan (1) Watery diarrhea: Code(s): R19.7 - Diarrhea, unspecified Plan History - The patient is a 54-year-old female presenting with diarrhea and stomach distress. - The diarrhea and stomach distress began on the evening of November 12 after a dinner during a vacation in [place]. - Initial episode of diarrhea occurred on Tuesday after leaving [place]. - Patient experienced severe fatigue and was unable to eat for several days due to fear of worsening symptoms. - Hunger returned gradually, and the patient resumed eating despite diarrhea persisting. - Diarrhea is most severe in the morning, usually occurring twice, with a recent episode requiring multiple bathroom visits throughout the day. - No blood in stools; associated symptoms include cramping and soreness after bowel movements. - No fever or chills reported. - Significant weight loss reported since vacation; approximately 3 to 3.5 pounds in a week and a half. - A family member and significant other had short-term stomach issues, including diarrhea, prior to her symptoms. Social History: - Patient has recently been on vacation in [place], returning shortly after symptoms began. - Attempting to manage weight, recording changes post-vacation. Family History: - Boyfriend's mother experienced stomach issues, including diarrhea for three days in October. - Boyfriend had a stomach illness a few days before patient's vacation. Problem List - Diarrhea - Stomach Distress Patient Instructions - Provide a stool specimen to the lab when possible. - Maintain adequate hydration, considering electrolyte-rich fluids. Orders: Orders Leukocytes Stool Qualitative Today R19.7 - Diarrhea, unspecified Chymotrypsin, Stool Today R19.7 - Diarrhea, unspecified GI Panel Today R19.7 - Diarrhea, unspecified Comprehensive Met. Panel Today R19.7 - Diarrhea, unspecified Cyclospora & Isospora Stool Today R19.7 - Diarrhea, unspecified Giardia Ag Stool EIA Today R19.7 - Diarrhea, unspecified Ova and Parasite Today R19.7 - Diarrhea, unspecified Complete Blood Count Auto Diff Today R19.7 - Diarrhea, unspecified Coding Level of Care Code Est Pt Level 3 (72344) Diagnoses Watery diarrhea R19.7
== END 2024-11-23 10:59 | disposition home or self-care (01) ==
PROVIDERS: PCP Internal Medicine; Visit Provider Internal Medicine
DX: R19.7 Diarrhea, unspecified (principal)

== ENCOUNTER 2024-11-23 09:09 | Outpatient (REF) | payer OTHER, SELFPAY ==
[2024-11-23 13:00] LABS: MANUAL DIFF FLAG NO
[2024-11-23 13:08] LABS: Hematocrit 41.5 % (37.0-47.0); Hemoglobin 13.4 g/dl (12.0-16.0); Imm Gran Abs Auto 0.03 X10*3/uL (0.00-0.03); Imm Gran Pct Auto 0.4 % (0.0-0.4); Lymphocytes Absolute Auto 1.9 X10*3/uL (1.2-4.9); Mean Corpuscular HGB Conc 32.3 g/dl (31.0-35.0); Mean Corpuscular Hemoglobin 29.8 pg (27.0-33.0); Mean Corpuscular Volume 92.4 fL (80.0-98.0); NRBC Abs Auto 0.000 X10*3/uL (0.0-0.012); NRBC Pct Auto 0.0 /100WBC (0.0-0.2); Platelet Count 310 X10*3/uL (160-400); Red Blood Count 4.49 X10*6/uL (4.20-5.50); White Blood Count 7.0 X10*3/uL (4.8-10.8)
[2024-11-23 13:24] LABS: Alanine Aminotransferase 15 U/L (0-31); Albumin Level 4.2 g/dL (3.5-5.0); Alkaline Phosphatase 53 U/L (39-117); Anion Gap 13 (12-20); Aspartate Amino Transferase 20 U/L (5-31); Blood Urea Nitrogen 17 mg/dL (9-16); Calcium 9.1 mg/dL (8.4-10.2); Carbon Dioxide 24 mmol/L (22-29); Chloride 108 mmol/L (96-108); Estimated Glomerular Filt Rate 60; Potassium 4.0 mmol/L (3.3-5.1); Sodium 141 mmol/L (135-145); Total Protein 6.7 g/dL (6.5-8.0)
== END 2024-11-23 09:10 | disposition home or self-care (01) ==
LOC: HO.HMGCLDS 09:09
PROVIDERS: PCP Internal Medicine; Visit Provider Internal Medicine
DX: R19.7 Diarrhea, unspecified (principal)
CPT/HCPCS: 36415; 80053; 85025

== ENCOUNTER 2024-11-24 07:10 | Outpatient (REF) | payer OTHER, SELFPAY ==
[2024-11-24 13:17] LABS: E. coli EAEC Not Detected (Not Detect.); E. coli EPEC Not Detected (Not Detect.); E. coli ETEC Not Detected (Not Detect.); E. coli STEC Not Detected (Not Detect.); Shigella sp./EIEC Not Detected (Not Detect.)
[2024-11-24 14:17] LABS: Leukocytes Stool Qualitative NEGATIVE (NEGATIVE)
== END 2024-11-24 07:11 | disposition home or self-care (01) ==
LOC: HO.HMGCLNP 07:10
PROVIDERS: PCP Internal Medicine; Visit Provider Internal Medicine
DX: R19.7 Diarrhea, unspecified (principal)
CPT/HCPCS: 87015; 87177; 87207; 87209; 87329; 87507; 89055

== ENCOUNTER 2024-12-07 12:20 | Outpatient (AMB) | payer OTHER, SELFPAY ==
--- OUTSIDE RECORDS SUMMARY | 2024-12-07 12:22 | XMS_ITS | Clinical Summary ---
Author Organization [address] Address [address] [place] [phone] Phone Care Team Providers Care Senior Cytotechnologist Name Role Phone Physician, Pcp Unknown Primary [...] complete this topic Insurance [employer] Care Teams Senior Cytotechnologist Relationship Specialty Start Date End Date Physician, Pcp Unknown PCP - General 04/10/24
[2024-12-07 13:18] VITALS: BP 126/84; PULSE 77; TEMP 36.8; O2SAT 99; BMI 25.4
--- NOTE | 2024-12-07 13:18 | MHC.OFFWIV ---
Intake Vital Signs 12/07/24 13:18 Height 5 ft 5.5 in Weight 155 lb 4 oz BMI 25.4 BP 126/84 Blood Pressure Location Rt brachial Position Sitting Pulse 77 Pulse Source Pulse Oximeter Temp 98.3 F Temp Source Oral Pulse Oximetry (%) 99 Oxygen Delivery Method Room Air Intake Visit Reasons: EP-rt leg bite & hemorrhoid Patient Tobacco Use Status: Never used Tobacco Side Trimmer Required: No Is last menstrual period known: Yes Last menstrual period: 11/22/24 Post menopausal: No Patient : No Allergies pea protein Adverse Reaction (Uncoded 08/08/24 09:40) hives Do you need a note to return to daycare/school/sports/work: No HPI EP-rt leg bite & hemorrhoid HPI Details This 54-year-old female patient who presents to the walk-in clinic today with two primary issues. 1. Insect sting. This occurred yesterday morning. Patient is unsure what stung her in right calf. Area has gotten increasingly red and itchy. She has taken Benadryl and used otc cream on area. 2. She has ongoing diarrhea and stomach issues. She was seen here by Dr. Bray for this on 11/23. The diarrhea and stomach distress began on 11/12 while on a trip to [place]. Since this, she has had persistent, daily diarrhea with multiple episodes per day. She has tried probiotics and also bland diet, however this has persisted. No fever, chills, or blood in stool reported. Has otc immodium which she will use prn, particularly if going for a long drive or when she will be in public. She now reports two external hemorrhoids due to this. She has used suppositories which are helpful however she in unsure how long these should be utilized for. [facility] Medical History History of abnormal cervical Pap smear Hypertriglyceridemia Seasonal allergic rhinitis History of depression Migraine Surgical History Hx of LASIK Family History Father HTN (hypertension) Mother HTN (hypertension) Brother Bipolar disorder Mental health disorder Son No problems noted. Son No problems noted. Daughter No problems noted. Paternal Uncle No problems noted. Maternal Uncle Mental health disorder Social History Housing: House Alcohol intake: current Patient Tobacco Use Status: Never used Tobacco e-Cigarette/Vaping Use: Never Used Patient : No service: No Current occupational status: employed Cognitive needs: No Hearing needs: No Vision needs: No Female Reproductive History Menstrual Date of last menstrual period: 11/22/24 Review of Systems Const All systems reviewed & are unremarkable except as noted in HPI and below Physical Exam Vital Signs: Last Vital Signs Temp 98.3 F 12/07/24 13:18 Pulse 77 12/07/24 13:18 BP 126/84 12/07/24 13:18 Pulse Ox 99 12/07/24 13:18 Oxygen Delivery Method Room Air 12/07/24 13:18 BMI result Body Mass Index 25.4 Const General: cooperative, healthy appearing and no acute distress HEENT Head: Yes normal to inspection Resp Effort & Inspection: normal respiratory effort Other: nontender Skin Other: approx 10cm in diameter area of induration surrounding site of insect sting on right medial calf area. Warm to palp. Extrem General: Yes capillary refill normal and Yes no clubbing, cyanosis or edema Psych Appearance: grossly normal Mental Status: mental status grossly normal Speech and movement: Normal speech and movement present Assessment & Plan Assessment & Plan (1) Allergic reaction to insect sting: Code(s): T63.481A - Toxic effect of venom of other arthropod, accidental (unintentional), initial encounter Qualifiers: Encounter type: initial encounter Plan: Will start her on a short course of Prednisone for heightened reaction to insect sting. I also advised she keep epi-pen on her in case reactions intensity if/when stung again in the future. Will send rx. for this. (2) Diarrhea: Code(s): R19.7 - Diarrhea, unspecified Qualifiers: Diarrhea type: unspecified type Qualified Code(s): R19.7 - Diarrhea, unspecified Plan: Will try Lomotil for anticholinergic properties. She should continue with probiotics and adequate hydration. Stool cultures/panel have come back negative, however we discussed trying Cipro to see if this provides benefit, which the patient would like to do. We discussed indications, use, possible s/e of this. She will f/u with PCP at upcoming visit. (3) External hemorrhoids: Code(s): K64.4 - Residual hemorrhoidal skin tags Plan: Patient can try to manually reduce these at home if she wishes to try this, as well as Kegel exercises. She can also continue to use hemorrhoid suppositories and cream prn. She will be seeing PCP Dr. Craig on 12/17 and this can be further assessed. Medications: New diphenoxylate-atropine 2.5-0.025 mg 1 tab PO BID PRN 8 tabs 0RF diarrhea R19.7 - Diarrhea, unspecified ciprofloxacin HCl 500 mg PO BID 6 tabs 0RF 3 days R19.7 - Diarrhea, unspecified epinephrine (EpiPen 2-Dl) Use auto-injector epi-pen for anaphylactic reaction. Use second epi-pen 10-15 minutes later if symptoms persist. 0.3 mg (0.3 mL) IM Q10M PRN 2 ea 1RF anaphylaxis T78.40XA - Allergy, unspecified, initial encounter prednisone 20 mg PO BID 6 tabs 0RF 3 days T63.481A - Toxic effect of venom of other arthropod, accidental (unintentional), initial encounter Coding Level of Care Code Est Pt Level 5 (67672) Diagnoses Allergic reaction to insect sting T63.481A Encounter type: initial encounter Diarrhea, unspecified type R19.7 Diarrhea type: unspecified type External hemorrhoids K64.4
== END 2024-12-07 14:36 | disposition home or self-care (01) ==
PROVIDERS: PCP Internal Medicine; Visit Provider Nurse Practitioner Family
DX: R19.7 Diarrhea, unspecified (principal); K64.4 Residual hemorrhoidal skin tags; T63.481A Toxic effect of venom of other arthropod, accidental (unintentional), initial encounter

== ENCOUNTER 2025-01-16 03:17 | Emergency (ER) | payer OTHER, SELFPAY ==
--- NOTE | ~2025-01-16 | XR_ITS ---
CLINICAL HISTORY: lower back pain 3 views lumbar spine Comparison: None provided Findings: Normal alignment. No acute fractures or dislocation. No significant degenerative change. IMPRESSION: No acute findings. This document has been electronically signed by: Feliz Byod MD, PHD on 01/16/2025 04:28:06
[2025-01-16 03:19] VITALS: BP 145/78; PULSE 70; RESP 16; TEMP 36.1; O2SAT 98; BMI 23.2
--- NOTE | 2025-01-16 03:47 | ED_ITS ---
HPI - Back Pain/Injury General Chief Complaint: Back Pain/Injury Stated Complaint: Gen Med Time Seen by Provider: 01/16/25 03:46 Source: patient Mode of arrival: ambulatory Limitations: no limitations History of Present Illness ED Provider: Dany IRVIN HPI Narrative: The patient is a 55-year-old female presenting to the ED reporting approximately 3 weeks ago she was scraping, and re-plastering the concrete of her foundation which required repetitive motion with scraping, as well as lifting multiple 55 lb bags of concrete. The patient reports she noted some lower back tightness following that activity, reports using 400 mg ibuprofen and stretching techniques with some improvement. Patient reports however the beginning of last week she then went on vacation to [place] where she road a bicycle throughout the get away, and reports since that time she has had markedly worsening left low back pain radiating into the left buttock down into the left leg. The patient reports attempting additional Motrin and stretching without relief, reports tonight the pain woke her up from sleep and prompted her ED visit. The patient in the ED appears in no acute distress, reports last taking ibuprofen 400 mg at 22:30. The patient denies any associated fever/chills, nausea, vomiting, fall, cardiac, other blunt trauma, bowel/bladder incontinence, urinary retention, saddle paresthesias, or lower extremity weakness. The patient denies any surgical spinal history. Patient denies associated dysuria or hematuria. Related Data Home Medications ?Medication ?Instructions ?Recorded ?Confirmed metronidazole 1 % topical cream 1 appl topical BID 11/23/24 Previous Rx's ?Medication ?Instructions ?Recorded norethindrone acetate 1 mg-ethinyl 1 tab PO DAILY #63 tabs 03/12/24 estradiol 20 mcg tablet fluticasone propionate 50 1 spray intranasal DAILY 3 m onths 09/05/24 mcg/actuation nasal #15.8 mL spray,suspension ciprofloxacin HCl 500 mg tablet 500 mg PO BID 3 days # 6 tabs 12/07/24 diphenoxylate-atropine 2.5 1 tab PO BID PRN diarrhea # 8 tabs 12/07/24 mg-0.025 mg tablet epinephrine 0.3 mg/0.3 mL 0.3 mg (0.3 mL) IM Q10M PRN 12/07/24 injection, auto-injector (EpiPen anaphylaxis #2 ea 2-Dl) prednisone 20 mg tablet 20 mg PO BID 3 days #6 tabs 12/07/24 acetaminophen 500 mg capsule 1,000 mg (2 x 500 mg) PO .q8 PRN 01/16/25 fever or pain #30 caps cyclobenzaprine 10 mg tablet 10 mg PO TID PRN muscle s pasm #14 01/16/25 tabs ibuprofen 600 mg tablet 600 mg PO Q8H PRN fever or p ain 01/16/25 #30 tabs Allergies Allergy/AdvReac Type Severity Reaction Status Date / Time pea protein AdvReac hives Uncoded 01/16/25 03:20 Review of Systems Review of Systems: Yes all other systems are reviewed and are negative [facility] Past Medical History Medical History History of abnormal cervical Pap smear Hypertriglyceridemia Seasonal allergic rhinitis History of depression Migraine Surgical History Hx of LASIK Family History Family History Father HTN (hypertension) Mother HTN (hypertension) Brother Bipolar disorder Mental health disorder Son No problems noted. Son No problems noted. Daughter No problems noted. Paternal Uncle No problems noted. Maternal Uncle Mental health disorder Social History Social History Housing: House Alcohol intake: current Patient Tobacco Use Status: Never used Tobacco Smoked in Last 30 Days: No e-Cigarette/Vaping Use: Never Used Use of substances other than those prescribed or required for medical reasons: No Advance Directives: No Advance Directives Information Provided: Yes Patient : No service: No Current occupational status: employed Cognitive needs: No Hearing needs: No Vision needs: No Physical Exam Vital Signs: Vital Signs: Last Vital Signs Temp 97.0 F 01/16/25 03:19 Pulse 70 01/16/25 03:19 Resp 16 01/16/25 03:19 BP 145/78 H 01/16/25 03:19 Pulse Ox 98 01/16/25 03:19 O2 Del Method Room Air 01/16/25 03:19 BMI result Body Mass Index 23.2 CONSTITUTIONAL: The patient appears non-toxic, well nourished and in no acute distress. Vital signs as documented. HEAD: Atraumatic, normocephalic. EYES: EOMs grossly intact, pupils equal, conjunctiva clear, no exudate. ENT: Nares patent, no discharge. Airway patent, no audible stridor, visible mu cosa is pink and moist without noted lesions. NECK: Trachea is midline, no obvious masses or gross abnormalities. CHEST: Symmetric movement, normal appearance. LUNGS: LS present and CTAB, no w/r/r. Non-labored work of breathing. CARDIAC: Regular Rhythm, S1/S2 appreciated, no murmurs, rubs or gallops. ABDOMEN: Abdomen soft and non-tender x4 quadrants, no palpable masses or organomegaly. : Deferred. BACK: No midline spinous process tenderness, no crepitus, no step-off. Positive straight leg raise on the left, less painful with passive range of motion. Distal CSM is intact, 2+ DP/PT pulses. EXTREMITIES: Normal tone, moves all extremities spontaneously without reported pain. No obvious acute injury or deformity noted. NEURO: Alert and oriented x3, CN II-XII appear grossly intact. Cerebellar Functioning grossly intact. No obvious sensory or motor deficits. Speech clear and appropriate. PSYCH: normal affect, appropriate eye contact, fluid speech, with appropriate response to questioning. No reported suicidality or homicidality. SKIN: Warm, dry, color appropriate, normal turgor. No rashes noted. Medical Decision Making Medical Decision Making MDM Narrative: 4:42 AM 01/16/2025 (Linn IRVIN): The patient is a 55-year-old female presenting to the ED reporting approximately 3 weeks ago she was scraping, and re-plastering the concrete of her foundation which required repetitive motion with scraping, as well as lifting multiple 55 lb bags of concrete. The patient reports she noted some lower back tightness following that activity, reports using 400 mg ibuprofen and stretching techniques with some improvement. Patient reports however the beginning of last week she then went on vacation to [place] where she road a bicycle throughout the get away, and reports since that time she has had markedly worsening left low back pain radiating into the left buttock down into the left leg. The patient reports attempting additional Motrin and stretching without relief, reports tonight the pain woke her up from sleep and prompted her ED visit. The patient in the ED appears in no acute distress, reports last taking ibuprofen 400 mg at 22:30. The patient denies any associated fever/chills, nausea, vomiting, fall, cardiac, other blunt trauma, bowel/bladder incontinence, urinary retention, saddle paresthesias, or lower extremity weakness. The patient denies any surgical spinal history. Patient denies associated dysuria or hematuria. The patient's exam is markedly reassuring, no midline spinous process tenderness, no crepitus, no step-off. Positive straight leg raise on the left, less painful with passive range of motion. Distal CSM is intact, 2+ DP/PT pulses. The patient was sent for an x- ray during triage process, x-ray shows no acute abnormalities. The patient will be treated with Tylenol, ibuprofen, lidocaine patch, and we will discharge with anti-inflammatories and a course of cyclobenzaprine. Patient will not receive cyclobenzaprine in the ED as she drove to the emergency department this evening. Admission/Observation Consideration of admission/observation: Escalation of care including admission/observation considered Radiology Impression Discussion of test interpretation with radiology: I have reviewed the radiologist's reading. Radiologist Impression: CLINICAL HISTORY: lower back pain 3 views lumbar spine Comparison: None provided Findings: Normal alignment. No acute fractures or dislocation. No significant degenerative change. IMPRESSION: No acute findings. This document has been electronically signed by: Feliz Boyd MD, PHD on 01/16/2025 04:28:06 Prescription Management I considered prescription management with: Pain Medication Discharge Plan Discharge Clinical Impression: Lumbar radiculopathy, Strain of lumbar region Patient Disposition: Home, Self-Care Instructions: Muscle Strain (ED), Acute Low Back Pain (ED), Lumbar Radiculopathy (ED), P.R.I.C.E. Treatment (ED) Additional Instructions: Thank you for choosing [facility] Emergency Department for your care today. Thankfully your x-ray showed no evidence of an acute fracture or other abnormality, and your exam and presentation of symptoms is not concerning for any compression of the spinal cord which would require advanced imaging. At this time there is no indication for admission to the hospital or continued ED observation, and it is safe to discharge you home. Your symptoms today are likely secondary to acute musculoskeletal strain of your low back which is causing compression of the nerves radiating into your left leg. You should take alternating (staggered) doses of ibuprofen 600mg and Tylenol 1000mg every 4 hours as needed for any additional pain. Please rest the injured area, and apply ice for 20 minutes every hour. As a part of your care plan, you have also been prescribed a muscle relaxer. Please take this medication only for severe pain or spasm that is not relieved by ibuprofen and/or Tylenol. Muscle relaxer medications can carry high risk of unintentional addiction and abuse. Take this medication only as directed and only if absolutely necessary. This medicine can make you drowsy, you are not allowed to drive, operate heavy machinery, or be the sole care provider for children while taking this medication. We have treated you with a lidocaine patch, if you find this provides you significant relief additional patches can be purchased at any local pharmacy without a prescription. Please follow up with your primary care physician for re-evaluation, additional management of your symptoms, and continued preventative care. If you do not have a primary care physician, please call the [facility] at [phone] to establish a new primary care physician. While waiting to establish your new primary care physician, you can call our Walk-in Care Clinic at [phone] for non-emergency needs. Please return to the emergency department if you develop a severe or sudden ch janelle in your symptoms, a fever over 100.4 that does not improve with Tylenol or Ibuprofen, recurrent vomiting, or any other new or worsening symptoms or concerns. Prescriptions: New cyclobenzaprine 10 mg tablet 10 mg PO TID PRN (Reason: muscle spasm) Qty: 14 0RF ibuprofen 600 mg tablet 600 mg PO Q8H PRN (Reason: fever or pain) Qty: 30 0RF acetaminophen 500 mg capsule 1,000 mg PO .q8 PRN (Reason: fever or pain) Qty: 30 0RF No Action norethindrone ac-eth estradiol 1-20 mg-mcg tablet 1 tab PO DAILY Qty: 63 3RF fluticasone propionate 50 mcg/actuation spray,suspension 1 spray intranasal DAILY 90 Days Qty: 15.8 5RF metronidazole 1 % cream 1 appl topical BID prednisone 20 mg tablet 20 mg PO BID 3 Days Qty: 6 0RF diphenoxylate-atropine 2.5-0.025 mg tablet 1 tab PO BID PRN (Reason: diarrhea) Qty: 8 0RF ciprofloxacin HCl 500 mg tablet 500 mg PO BID 3 Days Qty: 6 0RF epinephrine [EpiPen 2-Dl] 0.3 mg/0.3 mL auto-injector 0.3 mg IM Q10M PRN (Reason: anaphylaxis) Qty: 2 1RF Rx Instructions: Use auto-injector epi-pen for anaphylactic reaction. Use second epi-pen 10-15 minutes later if symptoms persist. Referrals: Leona Craig MD [Primary Care Provider, Internal Medicine] Clinical Impression: Lumbar radiculopathy; Strain of lumbar region Print Language: Setswana
[2025-01-16] MEDS: Lidocaine 4 % Patch ADH..PATCH 1 PATCH TRANSDERMA (05:12)
[2025-01-16 05:22] VITALS: BP 145/78; PULSE 70; RESP 16; TEMP 36.1; O2SAT 98
== END 2025-01-16 05:23 | disposition home or self-care (01) ==
PROVIDERS: Emergency Provider Emergency Medicine; PCP Internal Medicine
DX: M54.16 Radiculopathy, lumbar region (principal); Z79.899 Other long term (current) drug therapy
CPT/HCPCS: 72100; 99283; 99284

== ENCOUNTER → 2025-01-16 03:43 | Outpatient (BNV) | payer OTHER, SELFPAY | PROVIDERS: Emergency Provider Emergency Medicine; PCP Internal Medicine; Visit Provider General Practice | DX: M54.50 Low back pain, unspecified (principal) | CPT/HCPCS: 72100 ==